=== PATIENT | female | born 1995 | race Two or more races ===

== ENCOUNTER 2019-08-01 23:14 | Emergency (ER) | payer MEDICARE, MEDICAID ==
[~2019-08-01] VITALS: Ht 162.6 cm; Wt 97.0 kg
--- NOTE | 2019-08-01 23:20 | NUR ---
First contact with pt. Pt resting in gurney, groaning, appears uncomfortable, states her "stomach hurts really bad" pt states pain came on suddenly and is a cramping stabbing sensation in lower region. Bowel sounds present, LMP unknown but pt reports getting "birthcontrol shot", reports bowel movement today, no history of abdominal sx, no burning or discomfort with urination. Pt placed on BP and SPO2 monitor. ambulated to and from restroom with a smooth and steady gait. UA sent to lab. Orestes GIANG at for eval and POC. WCTM.
[2019-08-01] MEDS ORDERED: MORPHINE SULFATE 4 MG/ML, 1ML IVPush PRN (23:30)
[2019-08-01] MEDS ORDERED: ONDANSETRON 2MG/ML, 2ML IVPush ONE (23:30)
[2019-08-01] MEDS ORDERED: ONDANSETRON 2MG/ML, 2ML ONE (23:42)
[2019-08-01] MEDS ORDERED: MORPHINE SULFATE 4 MG/ML, 1ML ONE (23:42)
[2019-08-01 23:45] LABS: BASOPHILS # (AUTO) 0.05 x10^3/uL (0-0.1); BASOPHILS % (AUTO) 1 % (0-1); EOSINOPHILS # (AUTO) 0.12 x10^3/uL (0-0.4); EOSINOPHILS % (AUTO) 1 % (1-7); LYMPHOCYTES # (AUTO) 3.17 x10^3/uL (1-3.4); LYMPHOCYTES % (AUTO) 32 % (22-44); MD NO; MEAN CORPUSCULAR HEMOGLOBIN 28.6 pg (27.0-34.8); MEAN CORPUSCULAR HGB CONC 32.9 g/dL (32.4-35.8); MEAN CORPUSCULAR VOLUME 86.9 fL (80-100); MEAN PLATELET VOLUME 7.5 fL (7.4-10.4); MONOCYTES # (AUTO) 0.64 x10^3/uL (0.2-0.8); MONOCYTES % (AUTO) 7 % (2-9); NEUTROPHILS # (AUTO) 5.82 x10^3/uL (1.8-6.8); NEUTROPHILS % (AUTO) 59 % (42-75); PLATELET COUNT 417 x10^3/uL (130-400); RED BLOOD COUNT 4.23 x10^6/uL (3.82-5.3); RED CELL DISTRIBUTION WIDTH 14.8 % (9.6-15.2)
[2019-08-01 23:49] LABS: ALANINE AMINOTRANSFERASE 26 U/L (12-78); ALBUMIN 3.2 g/dL (3.4-5.0); ANION GAP 5 mmol/L (5-15); CALCIUM 8.1 mg/dL (8.5-10.1); CHLORIDE 111 mmol/L (98-107); CREATININE 0.75 mg/dL (0.55-1.02)
[2019-08-01 23:54] LABS: ALKALINE PHOSPHATASE 152 U/L (45-117); BILIRUBIN,TOTAL 0.2 mg/dL (0.2-1.0); TOTAL PROTEIN 7.6 g/dL (6.4-8.2)
--- NOTE | 2019-08-01 23:56 | NUR ---
pt medicated for pain per MAR. Pt refused nausea medications stating she did not need it, pt resting in [place], lights dimmed for comfort, denies additional needs at this time, WCTM. waiting for lab results. Condition unchanged at this time.
[2019-08-02 00:10] LABS: MICROSCOPIC INDICATED
--- NOTE | 2019-08-02 00:26 | NUR ---
pt resting in gurney, eyes closed, VSS, appears comfortable and relaxed, WCTM. call light within reach.
--- NOTE | 2019-08-02 01:00 | NUR ---
pt states that pain is significantly decreased at this time. NAD, skin warm dry and color WNL. WCTM. waiting on lab results.
[2019-08-02 01:33] VITALS: BP 92/50
--- NOTE | 2019-08-02 01:34 | NUR ---
Patient given discharge instructions and they have confirmed that they understand the instructions. Patient ambulatory with steady gait. DENIES ADDITIONAL QUESTIONS AT THIS TIME. DC'D WITH ALL PERSONAL BELONGINGS. ANA, HAIDER.
== END 2019-08-02 01:35 | disposition home or self-care (01) ==
LOC: ED 08-02 00:02
DX: R10.84 Generalized abdominal pain (principal); R06.02 Shortness of breath
CPT/HCPCS: 36415; 80053; 81001; 83690; 84703; 85025; 87086; 96374; 99283; J2270; 96372

== ENCOUNTER 2020-03-31 22:14 | Emergency (ER) | payer MEDICARE, MEDICAID ==
[~2020-03-31] VITALS: Ht 160 cm; Wt 95.0 kg
--- NOTE | 2020-03-31 22:29 | NUR ---
patient BIB [facility] from nursing home on legal hold for psychosis and unable to care for self as she was getting let go from nursing home today. only home medication she takes is geodon and patient was receiving this in nursing home. nursing home MD reports in legal hold that patient had incoherent process of thinking, incoherent speech, word salad, and babbling. patient presents wearing 7 shirts, babbling, rapid speech that is mostly incoherent. she denies SI/HI/ AH & VH. she is alert and oriented to self and place but states it is june 07 2014 and i am unable to understand what she says of why she was brought to hospital. she reports "i have been in correction for 45 years and i went to the park yesterday with my friends and did all the drugs". patient states she drinks 4 beers a day and uses cocaine regularly. i asked if she uses any other drugs and she states "yes, all of them". she is wide eyed and making intense eye contact. all personal items and clothing placed in personal belonging bags and placed in locked secured cabinet in ER. 1:1 sitter in view of patient room secured
--- NOTE | 2020-03-31 22:30 | NUR ---
pt in gown now, removed 7 shirts, and 4 belonging bags placed in lock up. primary rn at bs. officers brought in on legal, ashleigh larkin going to call sister as poc from [facility] is to release with sister.
[2020-03-31] MEDS ORDERED: ZIPR20CA2 PO (22:39)
[2020-03-31 23:21] LABS: BASOPHILS % (AUTO) 1 % (0-1); EOSINOPHILS % (AUTO) 2 % (1-7); LYMPHOCYTES % (AUTO) 37 % (22-44); MEAN CORPUSCULAR HEMOGLOBIN 29.9 pg (27.0-34.8); MEAN CORPUSCULAR HGB CONC 33.5 g/dL (32.4-35.8); MEAN PLATELET VOLUME 7.3 fL (7.4-10.4); MONOCYTES % (AUTO) 7 % (2-9); NEUTROPHILS % (AUTO) 54 % (42-75); PLATELET COUNT 324 x10^3/uL (130-400); RED BLOOD COUNT 3.97 x10^6/uL (3.82-5.3)
[2020-03-31 23:22] LABS: MD NO
[2020-03-31 23:28] LABS: ALBUMIN 3.1 g/dL (3.4-5.0); ANION GAP 9 mmol/L (5-15); CALCIUM 8.4 mg/dL (8.5-10.1); CHLORIDE 107 mmol/L (98-107)
--- NOTE | 2020-03-31 23:31 | NUR ---
PATIENT AMBULATED TO BATHROOM WITH STEADY GAIT. RN IN BATHROOM WITH PATIENT DUE TO NEEDING UA AND PATIENT NOT FOLLOWING REQUESTS AND PSYCHOSIS. UA OBTAINED. I INSTRUCTED PATIENT TO USE CLEANING WIPE I HANDED HER AND SHE PLACED ON TOILET AND SAT DOWN WITHOUT CLEANSING FIRST SITTER REMAINS IN VIEW OF PATIENT FOR SAFETY
[2020-03-31 23:35] LABS: ALANINE AMINOTRANSFERASE 26 U/L (12-78); ALKALINE PHOSPHATASE 118 U/L (45-117); BILIRUBIN,TOTAL 0.3 mg/dL (0.2-1.0); CREATININE 0.78 mg/dL (0.55-1.02); TOTAL PROTEIN 7.2 g/dL (6.4-8.2)
[2020-03-31 23:42] LABS: SALICYLATE LEVEL < 1.7 mg/dL (2.8-20.0)
[2020-03-31 23:47] LABS: MICROSCOPIC INDICATED
[2020-03-31 23:54] LABS: AMPHETAMINE SCREEN, URINE Negative (Negative); BARBITURATE SCREEN, URINE Negative (Negative); BENZODIAZEPINE SCREEN, URINE Positive (Negative); CANNABINOID SCREEN, URINE Negative (Negative); COCAINE SCREEN, URINE Negative (Negative); METHADONE SCREEN, URINE Negative (Negative); OPIATE SCREEN, URINE Negative (Negative)
--- NOTE | 2020-04-01 00:13 | NUR ---
VERN HAILE APPROVED PATIENT TO HAVE VISITOR. MOTHER BROUGHT BACK. SAFETY MAINTAINED
--- NOTE | 2020-04-01 00:14 | NUR ---
PATIENT SEEMS TO BE HAVING CALM CONVERSATION WITH HER MOTHER. PATIENT DOES NOT SEEM TO BE BABBLING. BOTH PATIENT AND PATIENT'S MOTHER SPEAKING WELSH
--- NOTE | 2020-04-01 01:14 | NUR ---
APPROX 1 HOUR CONVERSATION WITH MOTHER, USING [employer], TO ANSWER MOTHER'S QUESTIONS . PATIENT'S MOTHER REQUESTING PAPERWORK DEEMING PATIENT INCOMPETENT TO FILM MOUNTER COURT SHE STATES PATIENT WAS IN COURT TODAY AND SENT HERE "BECAUSE SHE WAS SICK". MOTHER NOTIFIED BY THIS RN THAT THE ER WILL NOT DEEM HER INCOMPETENT THIS IS A LONG AND COMPLICATED PROCESS AND SHE NEEDS TO FIRST HAVE A PSYCHIATRIC WORKUP AND EVALUATION BY A PSYCHIATRIST AND THE PSYCHATRIC FACILITY SHE IS TRANFERRED TO WILL START THAT PROCESS. PATIENT'S MOTHER ALSO STATES SHE WILL CALL AND NOTIFY US OF PATIENT'S MEDICATIONS. PATIENT'S MOTHER STATES THAT PATIENT RAN AWAY FROM HOME AND THEN WENT TO [facility] AND MOTHER IS NOT AWARE OF WHAT PATIENT DID TO GO TO [facility].
--- NOTE | 2020-04-01 01:40 | NUR ---
report given to April Russ RN for break relief
--- NOTE | 2020-04-01 01:43 | NUR ---
Covering primary for break, Pt sleeping RR equal and unlabored. Sitter in line of site.
--- NOTE | 2020-04-01 02:40 | NUR ---
patient resting in bed with eyes closed. in NAD. safety maintained. will continue to monitor. sitter in view of patient for safety
--- NOTE | 2020-04-01 03:40 | NUR ---
patient resting in bed in NAD. safety maintained. sitter in view of patient
--- NOTE | 2020-04-01 04:03 | NUR ---
patient alert and awake. oriented to place and self only. mumbling, babbling incoherent words. VS remain stable. not impulsive at this time. safety maintained
--- NOTE | 2020-04-01 04:42 | NUR ---
patient babbling, restless, tremulous and when i ask her a question, she repeats it into her babbling vocalization/word salad. Dr. castañeda is unavailable at this time. i will notify him shortly when he is available. patient able to be directed back to bed from bathroom. patient used water from bathroom faucet to wet hair as prior to her entering bathroom she was repeating the word "shower" as she also "i need to use the bathrooom. can i shower?". warm blankets provided. tv turned on for distraction. water provided to patient and passed swallow eval. safety maintained
--- NOTE | 2020-04-01 04:50 | NUR ---
dr. castañeda notified of patient's elevated manic/psychosis state. medications ordered and will be administered
[2020-04-01] MEDS ORDERED: LORazepam 1MG TABLET ONE (04:54)
[2020-04-01] MEDS ORDERED: ZIPRASIDONE 20 MG INJ IM ONE ×2 (04:54→05:00)
--- NOTE | 2020-04-01 04:56 | NUR ---
medications administered. i visualized something white in the back of patient's throat when checking to make sure patient took medication. using tongue depressor, ativan pill on side of paient's tonsil/throat. more water provided and no longer visible. tolerated PO fluids
[2020-04-01] MEDS ORDERED: LORazepam 1MG TABLET PO ONE (05:00)
--- NOTE | 2020-04-01 05:19 | NUR ---
Patient with medicaid traditional insurance. Packet faxed to [facility], and [facility] and conformation rececived. Already denied by [facility] from [facility] to them only having male beds, but she states they will keep patient on the radar if there is a d/c.
--- NOTE | 2020-04-01 05:54 | NUR ---
patient resting in bed with eyes closed. in NAD. VS remain stable. sitter in view of patient for safety. i did not receive a call from mother/sister regarding her medications as we discussed prior to their departure
--- NOTE | 2020-04-01 07:01 | NUR ---
report given to Satnam SOTO
--- NOTE | 2020-04-01 07:12 | NUR ---
PT SLEEPING, SITTER PRESENT
--- NOTE | 2020-04-01 07:38 | NUR ---
PT TO BATHROOM.
--- NOTE | 2020-04-01 08:34 | NUR ---
MEAL TRAY GIVEN TO PT.
--- NOTE | 2020-04-01 09:53 | NUR ---
BALDOMERO GIL AT BEDSIDE
--- NOTE | 2020-04-01 10:03 | NUR ---
BREAK RN: PT UPRIGHT ON GURNEY AWAKE, CALM & COOPERATIVE, WATCHING TV, NO NEEDS AT THIS TIME, NAD, PT REMAINS IN SAFE ENVIRONMENT, SITTER IN VIEW.
--- NOTE | 2020-04-01 10:26 | NUR ---
SEEN BY LOUISE ALEXANDRE
[2020-04-01] MEDS ORDERED: HALOPERIDOL 5 MG TABLET PO SCH ×3 (11:30→21:00)
[2020-04-01] MEDS ORDERED: HALOPERIDOL 5 MG TABLET ONE (11:31)
[2020-04-01] MEDS ORDERED: DIVALPROEX 500 MG TAB.ER.24H ONE (11:32)
--- NOTE | 2020-04-01 11:56 | NUR ---
PT MEDICATED PER ORDERS, GIVEN WATER.SITTER PRESENT
[2020-04-01] MEDS ORDERED: DIVALPROEX 500 MG TAB.ER.24H PO SCH ×2 (12:00→21:00)
--- NOTE | 2020-04-01 12:14 | NUR ---
GAVE PT LUNCH TRAY. PT SITTING UP IN [facility]. SITTER PRESENT
--- NOTE | 2020-04-01 12:16 | NUR ---
NEW INSURANCE OF MEDICARE. PACKET FAXED TO [facility].
--- NOTE | 2020-04-01 12:33 | NUR ---
rec'd word back from Vinay Gao. pt has been accepted and will begin transfer paperwork
--- NOTE | 2020-04-01 14:55 | NUR ---
DC VIA [facility] TO [facility], ALL BELONGINGS W PT. ALL INSTRUCTIONS PROVIDED
== END 2020-04-01 14:58 | disposition home or self-care (01) ==
LOC: ED 23:17 → EDBD 23:17 → ED 04-01 14:58
DX: F20.1 Disorganized schizophrenia (principal); F22 Delusional disorders; R94.31 Abnormal electrocardiogram [ECG] [EKG]; Z91.14 Patient's other noncompliance with medication regimen
CPT/HCPCS: 36415; 80053; 80164; 80299; 80307; 80320; 80329; 81001; 84703; 85025; 87086; 93005; 96372; 99285; J3486; G0480